=== PATIENT | female | born 1985 | race American Indian/Alaskan Native ===

== ENCOUNTER 2018-09-05 10:06 | Outpatient (CLI) | payer BC ==
--- NOTE | 2018-09-05 13:31 | Mammography Report ---
RIGHT DIGITAL DIAGNOSTIC MAMMOGRAM with CAD and RIGHT BREAST ULTRASOUND: 09/05/18 10:00:00 CLINICAL: History of reduction mammoplasty and a benign right breast biopsy. She has given us the information for requesting previous imaging and reports. FINDINGS: The breast is mostly fatty. An irregular circumscribed upper outer periareolar mass contains a biopsy clip and measures approximately 3.9 cm maximum.No other mass, architectural distortion or suspicious calcifications. Targeted ultrasound of the right breast demonstrated a solid heterogeneous hypoechoic irregular mass at 9 o'clock 3.5 cm from the nipple. It measures 3.2 x 0.8 x 2.2 cm and correlates with the mammographic mass. IMPRESSION: A 3.2 cm right breast mass which has apparently been biopsied. BI-RADS CATEGORY: 3 - - Probably Benign RECOMMENDATION: 6 month followup right breast ultrasound. The current exam will be compared with prior imaging and followup in 6 months may be alleviated after reviewing prior studies. ACR BI-RADS MAMMOGRAPHIC CODES: 0 = Needs additional imaging evaluation; 1 = Negative; 2 = Benign; 3 = Probably benign; 4 = Suspicious; 5 = Malignant; 6 = Known biopsy-proven malignancy COMMENT: 1. Dense breast tissue, i.e., adenosis, fibrocystic changes, etc., may obscure an underlying neoplasm. 2. Approximately 10% of cancers are not detected with mammography. 3. A negative mammography report should not delay biopsy if a clinically suspicious mass is present. COMMENT: Patient follow-up letters are generated by our [employer] application.
== END 2018-09-05 10:07 | disposition home or self-care (01) ==
LOC: SPVWC 10:06
PROVIDERS: ATTEND Family Medicine
DX: N60.01 Solitary cyst of right breast (principal)